=== PATIENT | male | born 1980 | race Caucasian/White ===

== ENCOUNTER → 2018-12-28 15:31 | Outpatient (CLI) | payer BC, SELFPAY ==
--- NOTE | 2018-12-28 16:32 | EKG12_ITS ---
Test Reason : PREOP Blood Pressure : / mmHG Vent. Rate : 067 BPM Atrial Rate : 067 BPM P-R Int : 150 ms QRS Dur : 100 ms QT Int : 382 ms P-R-T Axes : 010 023 040 degrees QTc Int : 403 ms Normal sinus rhythm Normal ECG Confirmed by CHRISTOFER TODD, SONJA ([id number]), associate entertainment editor ANGELLA MCKEON ([id number]) on 12/29/2018 10:19:17 AM Referred By: Hemant Stafford Confirmed By:SONJA BEAULIEU MD
[2018-12-28 17:57] LABS: Hematocrit 44.6 % (40-54); Hemoglobin 15.3 g/dl (13.0-16.5); Mean Corp Hgb Conc 34.3 g/gl (32-36); Mean Corpuscular Hgb 31.1 pg (27.0-32.0); Mean Corpuscular Volume 90.7 fL (80-94); Mean Platelet Vol. 9.2 fl (6.2-12.0); Platelet Count 325 K/mm3 (150-450); RBC Distribution Width CV 13.4 % (11.6-14.6); RBC Distribution Width SD 43.9 fl (35.1-43.9); Red Blood Count 4.92 M/mm3 (4.6-6.2); White Blood Count 8.5 K/mm3 (4.4-11.0)
[2018-12-28 17:58] LABS: Scan Indicated on CBC? Y/N NO
[2018-12-28 18:12] LABS: Anion Gap 7 (5-15); BUN 13 mg/dL (7-18); BUN/Creat Ratio 11.9 RATIO (10-20); Calcium,Total 9.3 mg/dL (8.5-10.1); Chloride 104 mmol/L (98-107); Creatinine, Serum 1.09 mg/dL (0.70-1.30); EST Glomerular Filtration Rate 80 mL/min (>60); Est Glom Filt Rate - Afr Amer 97 mL/min (>60); Glucose 77 mg/dL (74-106); Potassium 3.9 mmol/L (3.5-5.1); Sodium Level 137 mmol/L (136-145)
== END ==
PROVIDERS: Family Provider Family Medicine; PCP Family Medicine; Referring Provider Orthopaedic Surgery; Visit Provider Orthopaedic Surgery
DX: Z01.818 Encounter for other preprocedural examination (principal)
CPT/HCPCS: 36415; 80048; 85027; 93005

== ENCOUNTER → 2018-12-31 11:15 | Outpatient (CLI) | payer BC, SELFPAY ==
[2018-12-31 12:29] LABS: Lithium < 0.20 mmol/L (0.60-1.20)
[2018-12-31 14:00] LABS: Cholesterol 181 mg/dL (200); High Density Lipoprotein 41 mg/dL; Triglycerides 190 mg/dL; Very Low Density Lipoprotein 38 mg/dL (5-40)
== END ==
PROVIDERS: Family Provider Family Medicine; PCP Family Medicine; Referring Provider Orthopaedic Surgery; Visit Provider Orthopaedic Surgery
DX: Z01.818 Encounter for other preprocedural examination (principal); I10 Essential (primary) hypertension; Z01.810 Encounter for preprocedural cardiovascular examination
CPT/HCPCS: 80061; 80178

== ENCOUNTER → 2019-06-13 | Outpatient (CLI) | payer BC, SELFPAY | END | disposition home or self-care (01) | PROVIDERS: Family Provider Family Medicine; PCP Family Medicine | DX: Z79.899 Other long term (current) drug therapy (principal) | CPT/HCPCS: 36415; 80178 ==

== ENCOUNTER → 2019-09-19 07:09 | Outpatient (CLI) | payer BC, SELFPAY ==
[2019-09-19 10:36] LABS: AST(SGOT) 28 U/L (15-37); Alanine Aminotransfer ALT/SGPT 50 U/L (16-61); Albumin, Serum 3.7 g/dL (3.2-5.0); Alkaline Phosphatase 78 U/L (45-117); Anion Gap 8 (5-15); BUN 12 mg/dL (7-18); BUN/Creat Ratio 10.6 RATIO (10-20); Chloride 105 mmol/L (98-107); Cholesterol 182 mg/dL (200); Creatinine, Serum 1.13 mg/dL (0.70-1.30); EST Glomerular Filtration Rate 77 mL/min (>60); Est Glom Filt Rate - Afr Amer 93 mL/min (>60); Globulin 3.6 g/dL (2.2-4.2); Glucose 105 mg/dL (74-106); High Density Lipoprotein 47 mg/dL; Potassium 3.8 mmol/L (3.5-5.1); Protein, Total 7.3 g/dL (6.4-8.2); Sodium Level 140 mmol/L (136-145); Triglycerides 142 mg/dL; Very Low Density Lipoprotein 28 mg/dL (5-40)
== END ==
PROVIDERS: Family Provider Family Medicine; PCP Family Medicine; Referring Provider Family Medicine; Visit Provider Family Medicine
DX: I10 Essential (primary) hypertension (principal); Z13.220 Encounter for screening for lipoid disorders
CPT/HCPCS: 36415; 80053; 80061

== ENCOUNTER → 2020-06-19 07:46 | Outpatient (CLI) | payer BC, SELFPAY ==
[2020-06-19 10:11] LABS: Absolute Lymphocyte Count 1.69 X10^3/uL (0.83-4.51); Absolute Neutrophil Count 4.6 X10^3/uL (2.0-7.7); Basophil# 0.03 X10^3/uL; Basophil% 0.4 % (0-1); Eosinophil# 0.09 X10^3/uL; Eosinophils% 1.3 % (0-5); Hematocrit 46.7 % (40-54); Hemoglobin 15.6 g/dL (13.0-16.5); Lymphocyte # 1.69 X10^3/ul (4.0); Lymphocyte % 23.9 % (19-41); Mean Corp Hgb Conc 33.4 g/dL (32-36); Mean Corpuscular Hgb 30.5 pg (27.0-32.0); Mean Corpuscular Volume 91.4 fL (80-94); Mean Platelet Vol. 8.8 fl (6.2-12.0); Monocyte# 0.61 X10^3/uL; Monocyte% 8.6 % (0-10); NRBC Flagged by Analyzer 0 % (0-5); Neutrophil # 4.64 X10^3/uL (2.7-7.7); Neutrophil % 65.7 % (47-70); Platelet Count 304 K/mm3 (150-450); RBC Distribution Width CV 12.8 % (11.6-14.6); RBC Distribution Width SD 43.2 fl (35.1-43.9); Red Blood Count 5.11 M/mm3 (4.6-6.2); White Blood Count 7.1 K/mm3 (4.4-11.0)
[2020-06-19 11:07] LABS: ALB/GLOB Ratio 1.2 RATIO (0.9-2.4); AST(SGOT) 21 U/L (15-37); Alanine Aminotransfer ALT/SGPT 48 U/L (16-61); Alkaline Phosphatase 63 U/L (45-117); Anion Gap 4 (5-15); BUN 8 mg/dL (7-18); BUN/Creat Ratio 7.4 RATIO (10-20); Calcium,Total 9.2 mg/dL (8.5-10.1); Chloride 108 mmol/L (98-107); Creatinine, Serum 1.08 mg/dL (0.70-1.30); EST Glomerular Filtration Rate 80 mL/min (>60); Est Glom Filt Rate - Afr Amer 97 mL/min (>60); Globulin 3.3 g/dL (2.2-4.2); Glucose 86 mg/dL (74-106); Potassium 4.1 mmol/L (3.5-5.1); Protein, Total 7.3 g/dL (6.4-8.2); Sodium Level 140 mmol/L (136-145); T4 Total, Thyroxin 9.3 ug/dL (4.5-12.1); Thyroid Stim Hormone (TSH) 2.59 uIU/mL (0.358-3.74)
[2020-06-19 11:26] LABS: Hepatitis C Antibody Non-Reactive (Nonreactive); T3 Total - Triiodothyronine 1.33 ng/mL (0.6-1.81)
== END ==
PROVIDERS: PCP Family Medicine; Referring Provider Family Medicine; Visit Provider Family Medicine
DX: R63.4 Abnormal weight loss (principal); R53.83 Other fatigue; Z11.59 Encounter for screening for other viral diseases
CPT/HCPCS: 36415; 80053; 84436; 84443; 84480; 85025; 86803

== ENCOUNTER 2020-07-04 12:22 | Emergency (ER) | payer BC, SELFPAY ==
[2020-07-04] VITALS (9 sets, daily range): BP systolic 126–168; BP diastolic 74–105; PULSE 72–94; RESP 14–18; TEMP 36.5; O2SAT 99; BMI 31.0
--- NOTE | 2020-07-04 12:31 | ED.RN ---
GIRLFRIEND REPORTS ODD BEHAVIOR. REPORTS TAKING THINGS OUT OF FRIDGE AND PUTTING THEM IN CUPBOARDS AND PLACING THINGS IN THE DRIVEWAY. SHE REPORTS SHE FOUND HIM YESTERDAY HUFFING BUTANE FROM HIS CRAPS DEALER. PT DENIES SI/HI OR DEPRESSION.
--- NOTE | 2020-07-04 13:02 | ED.VISSUMM ---
- ER Visit Summary Date of Service: 07/04/20 Chief Complaint: Abnormal behavior History of Present Illness: The patient is a [address] Alcocer. His psychiatrist is Dr. Fox at the [facility]. He has a history of delusional bipolar disorder and has been on lithium for approximately 10 years. He saw his psychiatrist in April and decided in to be on lithium anymore. This is been tapered off and he is finished it in May. Significant other reports he has had gradually increasing behavior since that time. However, they got much worse 5 days ago. She uses him putting a flag in the freezer, emptying the refrigerator onto the shelves, going through doors and moving stuff around, throwing stuff into the driveway as examples of this. Significant other reports he has been sleeping 3 hours a day. Has had a poor p.o. intake. Yesterday she caught him huffing butane from a diesel mechanic apprentice. Patient denies any suicidal or homicidal ideation. Physical Examination: Vitals: Stable. Afebrile. General: Well-nourished and well-developed. Head: Normocephalic atraumatic. Neck: Supple, no lymphadenopathy. No JVD. Nontender. Cardiovascular: Regular rate and rhythm. No murmurs. Respiratory: No respiratory distress. Clear to auscultation bilaterally. Abdominal: Soft, nontender, nondistended, normal bowel sounds. No guarding, rebound, or peritoneal signs. Back: Nontender. Extremities: Nontender, no edema. Skin: Normal color, no rash. Neurologic: Alert and oriented ?3. Cranial nerves II through XII are intact. Normal strength and sensation. Mental status exam: Patient appears their stated age. Good posture and grooming. Good eye contact. Normal rate, volume, and latency of speech. No suicidal or homicidal ideation. No auditory or visual hallucinations. Flow of thought is logical. Insight and judgment is fair. Test Results: CBC is normal. Talk screen is negative. Alcohol is negative. CMP and COVID are pending. Emergency Department Course and Treatment: Patient is resting comfortably without complaint. He was discussed with case management. Patient became increasingly agitated. He was given Geodon IM. Treatment Plan: Patient was discussed with the [facility] by case management. It is felt that he needs to be hospitalized. This is in process at this time. Disposition: Pending Impression: 1. Bipolar disorder with delusions. This note was generated with [employer] dictation software. It may contain incorrect words, spelling, and punctuation that were not noted in review of the chart prior to signing ED Disposition - Plan for ED Patient: Referrals: Danny Alcocer DO [Primary Care Provider] -
[2020-07-04 13:05] LABS: Absolute Lymphocyte Count 2.13 X10^3/uL (0.83-4.51); Absolute Neutrophil Count 5.1 X10^3/uL (2.0-7.7); Basophil# 0.02 X10^3/uL; Basophil% 0.2 % (0-1); Eosinophil# 0.08 X10^3/uL; Hematocrit 44.8 % (40-54); Hemoglobin 14.9 g/dL (13.0-16.5); Lymphocyte # 2.13 X10^3/ul (4.0); Mean Corp Hgb Conc 33.3 g/dL (32-36); Mean Corpuscular Hgb 30.4 pg (27.0-32.0); Mean Corpuscular Volume 91.4 fL (80-94); Mean Platelet Vol. 8.7 fl (6.2-12.0); Monocyte# 0.84 X10^3/uL; Monocyte% 10.3 % (0-10); NRBC Flagged by Analyzer 0 % (0-5); Neutrophil # 5.09 X10^3/uL (2.7-7.7); Neutrophil % 62.1 % (47-70); Platelet Count 309 K/mm3 (150-450); RBC Distribution Width CV 13.1 % (11.6-14.6); RBC Distribution Width SD 43.8 fl (35.1-43.9); White Blood Count 8.2 K/mm3 (4.4-11.0)
--- NOTE | 2020-07-04 13:06 | ED.RN ---
PER DR IGNACIO, PINK SLIP TO BE DETERMINED AFTER EVAL BY SW.
[2020-07-04 13:44] LABS: Alcohol, Blood (Medical)-Serum < 3.0 mg/dL
[2020-07-04 13:51] LABS: Amphetamine Urine VISTA NEGATIVE (<1000 ng/mL); Barbiturate Urine VISTA NEGATIVE (< 200 ng/mL); Benzodiazepine Urine VISTA NEGATIVE (< 200 ng/mL); Cocaine Urine VISTA NEGATIVE (< 300 ng/mL); Ecstacy Urine VISTA NEGATIVE (< 500 ng/mL); Methadone Urine VISTA NEGATIVE (< 300 ng/mL); PCP Urine VISTA NEGATIVE (< 25 ng/mL); THC Urine VISTA NEGATIVE (< 50 ng/mL); Vista UDS pH Range 6
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
--- NOTE | 2020-07-04 14:33 | ED.RN ---
PT INFORMED BY ROBIN DO THAT HE IS PINK SLIPPED AND THAT HE WOULD BE PLACED IN A FACILITY FOR INPATIENT CARE. WHILE UNHAPPY, PT IS AGREEABLE WITH TREATMENT. WATER GIVEN, MEAL ORDERED, MOVED TO ROOM 6 FOR TV. PT QUESTIONS NURSE ABOUT TRANSPORT. PT HAVING TROUBLE REMEMBERING INFORMATION GIVEN. LATER PT GIRLFRIEND SAID HE WAS MAD BECAUSE HE DIDN'T GET A DRINK. INFORMED THAT HE WAS GIVEN A BEVERAGE.
[2020-07-04 15:16] LABS: ALB/GLOB Ratio 1.3 RATIO (0.9-2.4); AST(SGOT) 48 U/L (15-37); Alanine Aminotransfer ALT/SGPT 63 U/L (16-61); Albumin, Serum 4.2 g/dL (3.2-5.0); Alkaline Phosphatase 81 U/L (45-117); Anion Gap 5 (5-15); BUN 3 mg/dL (7-18); BUN/Creat Ratio 2.8 RATIO (10-20); Calcium,Total 9.4 mg/dL (8.5-10.1); Chloride 108 mmol/L (98-107); Creatinine, Serum 1.07 mg/dL (0.70-1.30); EST Glomerular Filtration Rate 81 mL/min (>60); Est Glom Filt Rate - Afr Amer 98 mL/min (>60); Estimated Creatinine Clearance 94.76 ml/min; Globulin 3.2 g/dL (2.2-4.2); Glucose 98 mg/dL (74-106); Protein, Total 7.4 g/dL (6.4-8.2); Sodium Level 142 mmol/L (136-145)
[2020-07-04] MEDS: Ziprasidone IM 20 MG/ML VIAL IM (16:08)
--- NOTE | 2020-07-04 16:10 | ED.RN ---
PT VOICES FEELING VERY ANXIOUS WAITING FOR PLACEMENT. OFFERED GEODON AND NICOTINE GUM, PT WILLINGLY ACCEPTS. PT IS PLEASANT AND COOPERATIVE WITH STAFF AT THIS TIME.
[2020-07-04 16:28] LABS: Probe Check PASS; Specimen Processing Control PASS
--- NOTE | 2020-07-04 16:31 | CM.ED ---
SOCIAL WORK COVID-19 results received. Referral faxed to [facility]. Yassine Ervin, FLASH WELDING MACHINE OPERATOR, PIT HOIST OPERATOR
--- NOTE | 2020-07-04 16:48 | CM.ED ---
SOCIAL WORK Call to Tate with [facility] to verify referral received. Per Tate, spoke with Peyton in intake and referral has been received and will be reviewed. Tate reports does have beds available. Yassine Ervin MSW, STRUCTURAL RIGGER
--- NOTE | 2020-07-04 18:25 | CM.ED ---
SOCIAL WORK Call to Peyton with [facility] to inquire about referral. Per Peyton, will be getting back to this worker soon. Still awaiting acceptance at this time. Yassine Ervin, DATA DELIVERABLES MANAGER, PACK WORKER
--- NOTE | 2020-07-04 19:25 | CM.ED ---
SOCIAL WORK Call to Tate with [facility] to inquire about referral process and length of time for referral to be reviewed. Tate states review process should not take this long. Ttae to follow up with [facility] can worker and get back to this worker. Yassine Ervin, HOOKMAN, PUMP SERVICE SUPERVISOR
--- NOTE | 2020-07-04 19:55 | CM.ED ---
SOCIAL WORK Received call from Peyton with [facility] who reports still needing to review case with physician and if accepted would not be able to accommodate patient until tomorrow. This worker informed will seek other placement. Referral called and faxed to René at [facility]. René to review referral and get back to this worker. Yassine Ervin, SLEEVE BASTER, INSURANCE COUNSELOR
--- NOTE | 2020-07-04 20:37 | CM.ED ---
SOCIAL WORK Call from [place] with [facility]. Patient accepted by Dr. Delgadillo to the [facility]. Nurse to call report to . [employer] to set up transport. Patient sleeping at this time. Patient's girlfriend updated on transfer to [facility]. All questions answered. Yassine Ervin, RESEARCH ASSOCIATE POLICY, JR. SYSTEMS ADMINISTRATOR
== END 2020-07-04 22:49 ==
PROVIDERS: Emergency Provider Emergency Medicine; PCP Family Medicine
DX: F31.9 Bipolar disorder, unspecified (principal); F22 Delusional disorders; I10 Essential (primary) hypertension; Z79.899 Other long term (current) drug therapy; F17.200 Nicotine dependence, unspecified, uncomplicated
CPT/HCPCS: 80053; 80307; 80320; 85025; 87635; 96372; 99283; C9803; G0480; J3486; U0003

== ENCOUNTER → 2020-08-03 07:18 | Outpatient (CLI) | payer BC, SELFPAY ==
[2020-07-04 12:24] VITALS: BMI 31.0
[2020-08-03 10:22] LABS: Hematocrit 45.9 % (40-54); Hemoglobin 14.8 g/dL (13.0-16.5); Mean Corp Hgb Conc 32.2 g/dL (32-36); Mean Corpuscular Hgb 30.3 pg (27.0-32.0); Mean Corpuscular Volume 93.9 fL (80-94); Platelet Count 362 K/mm3 (150-450); RBC Distribution Width CV 13.4 % (11.6-14.6); RBC Distribution Width SD 46.5 fl (35.1-43.9); Red Blood Count 4.89 M/mm3 (4.6-6.2); White Blood Count 9.6 K/mm3 (4.4-11.0)
[2020-08-03 10:39] LABS: BUN 10 mg/dL (7-18); EST Glomerular Filtration Rate 79 mL/min (>60); Glucose 111 mg/dL (74-106)
[2020-08-03 10:40] LABS: ALB/GLOB Ratio 1.1 RATIO (0.9-2.4); AST(SGOT) 17 U/L (15-37); Alanine Aminotransfer ALT/SGPT 28 U/L (16-61); Albumin, Serum 3.5 g/dL (3.2-5.0); Alkaline Phosphatase 62 U/L (45-117); Anion Gap 4 (5-15); BUN/Creat Ratio 9.1 RATIO (10-20); Calcium,Total 8.9 mg/dL (8.5-10.1); Chloride 110 mmol/L (98-107); Cholesterol 154 mg/dL (200); Est Glom Filt Rate - Afr Amer 95 mL/min (>60); Globulin 3.3 g/dL (2.2-4.2); High Density Lipoprotein 40 mg/dL; Potassium 3.7 mmol/L (3.5-5.1); Protein, Total 6.8 g/dL (6.4-8.2); Sodium Level 140 mmol/L (136-145); Thyroid Stim Hormone (TSH) 3.41 uIU/mL (0.358-3.74); Triglycerides 150 mg/dL; Very Low Density Lipoprotein 30 mg/dL (5-40)
[2020-08-03 10:47] LABS: Hemoglobin A1c 5.4 % (3.8-5.6)
== END ==
PROVIDERS: PCP Family Medicine
DX: Z79.899 Other long term (current) drug therapy (principal)
CPT/HCPCS: 36415; 80053; 80061; 80178; 83036; 84443; 85027

== ENCOUNTER → 2021-05-23 07:47 | Outpatient (CLI) | payer BC, SELFPAY ==
[2020-07-04 12:24] VITALS: BMI 31.0
[2021-05-23 08:45] LABS: Hematocrit 49.7 % (40-54); Hemoglobin 16.5 g/dL (13.0-16.5); Mean Corp Hgb Conc 33.2 g/dL (32-36); Mean Corpuscular Hgb 30.5 pg (27.0-32.0); Mean Corpuscular Volume 91.9 fL (80-94); Mean Platelet Vol. 8.7 fl (6.2-12.0); Platelet Count 325 K/mm3 (150-450); RBC Distribution Width SD 47.4 fl (35.1-43.9); Red Blood Count 5.41 M/mm3 (4.6-6.2); White Blood Count 9.5 K/mm3 (4.4-11.0)
[2021-05-23 09:12] LABS: ALB/GLOB Ratio 1.2 RATIO (0.9-2.4); AST(SGOT) 32 U/L (15-37); Alanine Aminotransfer ALT/SGPT 47 U/L (16-61); Albumin, Serum 3.9 g/dL (3.2-5.0); Alkaline Phosphatase 67 U/L (45-117); Anion Gap 7 (5-15); BUN 8 mg/dL (7-18); BUN/Creat Ratio 7.2 RATIO (10-20); Calcium,Total 8.7 mg/dL (8.5-10.1); Chloride 103 mmol/L (98-107); Cholesterol 156 mg/dL (200); Creatinine, Serum 1.11 mg/dL (0.70-1.30); EST Glomerular Filtration Rate 78 mL/min (>60); Est Glom Filt Rate - Afr Amer 94 mL/min (>60); Globulin 3.3 g/dL (2.2-4.2); Glucose 132 mg/dL (74-106); High Density Lipoprotein 36 mg/dL; Potassium 4.2 mmol/L (3.5-5.1); Protein, Total 7.2 g/dL (6.4-8.2); Sodium Level 137 mmol/L (136-145); Triglycerides 162 mg/dL; Very Low Density Lipoprotein 32 mg/dL (5-40)
[2021-05-23 09:48] LABS: Hemoglobin A1c 5.3 % (3.8-5.6)
[2021-05-23 21:35] LABS: Vitamin D,25 Hydroxy 23.7 ng/mL
== END ==
PROVIDERS: PCP Family Medicine
DX: E55.9 Vitamin D deficiency, unspecified (principal); E78.2 Mixed hyperlipidemia; Z79.899 Other long term (current) drug therapy
CPT/HCPCS: 36415; 80053; 80061; 80178; 82306; 83036; 85027

== ENCOUNTER 2021-06-01 13:51 | Emergency (ER) | payer BC, SELFPAY ==
[2020-07-04 12:24] VITALS: BMI 31.0
[2021-06-01 13:52] VITALS: BP 154/99; PULSE 99; RESP 16; TEMP 36.9; O2SAT 97; BMI 30.1
[2021-06-01 15:17] LABS: Absolute Neutrophil Count 8.1 X10^3/uL (2.0-7.7); Basophil# 0.04 X10^3/uL; Basophil% 0.4 % (0-1); Eosinophil# 0.06 X10^3/uL; Eosinophils% 0.5 % (0-5); Hematocrit 46.3 % (40-54); Hemoglobin 15.4 g/dL (13.0-16.5); Lymphocyte % 16.4 % (19-41); Mean Corp Hgb Conc 33.3 g/dL (32-36); Mean Corpuscular Hgb 30.8 pg (27.0-32.0); Mean Corpuscular Volume 92.6 fL (80-94); Mean Platelet Vol. 8.5 fl (6.2-12.0); Monocyte% 8.2 % (0-10); NRBC Flagged by Analyzer 0 % (0-5); Neutrophil # 8.11 X10^3/uL (2.7-7.7); Neutrophil % 74.1 % (47-70); Platelet Count 352 K/mm3 (150-450); RBC Distribution Width CV 14.1 % (11.6-14.6); RBC Distribution Width SD 48.1 fl (35.1-43.9)
[2021-06-01 15:33] LABS: Anion Gap 6 (5-15); BUN 6 mg/dL (7-18); BUN/Creat Ratio 6.5 RATIO (10-20); Calcium,Total 9.2 mg/dL (8.5-10.1); Chloride 105 mmol/L (98-107); Creatinine, Serum 0.92 mg/dL (0.70-1.30); EST Glomerular Filtration Rate 97 mL/min (>60); Est Glom Filt Rate - Afr Amer 117 mL/min (>60); Glucose 90 mg/dL (74-106); Potassium 3.5 mmol/L (3.5-5.1); Sodium Level 138 mmol/L (136-145)
[2021-06-01 15:44] LABS: Alcohol, Blood (Medical)-Serum < 3.0 mg/dL
--- NOTE | 2021-06-01 16:00 | EX.ED.VIS.PS ---
HPI HPI - Psych History of Present Illness Chief Complaint: Mental Health Informant: patient and family Onset/Context/Timing Onset: Days Context: Gradual Onset Narrative Narrative: Patient presents for mental health evaluation. Patient states his mom wanted to come in and get checked. She is present at bedside. She states he has not been acting right for the last 3 days. She is concerned that he is off his psych meds. She states that he had a break-up 2 months ago and has been drinking more. Patient does admit to drinking heavily last night. He also admits to using some marijuana. Patient states he is taking his medications including his lithium. He denies suicidal or homicidal ideation. He does currently live alone. [facility] Medical History Bipolar disorder Hypertension Home Medications amlodipine 5 mg PO DAILY 07/04/20 [History Last Taken Unknown] lithium carbonate 300 mg PO BID 06/01/21 [History Last Taken Unknown] Allergy/AdvReac Type Severity Reaction Status Date / Time niacin AdvReac Hives Verified 06/01/21 13:55 Surgical History History of appendectomy Social History Smoking Status: Current every day smoker tobacco type: cigarettes and smokeless tobacco ROS ROS ED Constitutional Constitutional ED: Denies chills or fever(s) Eyes Eyes: Denies change in vision ENT ENT ED: Denies sore throat Cardiovascular Cardiovascular: Denies chest pain Respiratory/Chest Respiratory/Chest: Denies cough or dyspnea Gastrointestinal Gastrointestinal: Denies abdominal pain, diarrhea, nausea or vomiting Genitourinary Genitourinary ED: Denies dysuria Musculoskeletal Musculoskeletal: Denies back pain Integumentary Denies rash Neurologic Neurologic: Denies headache(s) or weakness Psychiatric Psychiatric: Reports depression; Denies anxiety, suicidal ideation or suicidal thoughts EXAM Physical Exam Const Vital Signs: 06/01/21 13:52 Temperature 98.5 F Temperature Source Temporal Pulse Rate 99 Respiratory Rate 16 Blood Pressure 154/99 H Blood Pressure Mean 117 Pulse Ox 97 Oxygen Delivery Method Room Air Positive well nourished and well developed General Appearance ED: well developed HEENT Reports normocephalic and head/scalp atraumatic Eyes PERRL and EOMs intact bilaterally Neck supple Chest Wall inspection of chest normal and palpation of chest normal Resp normal respiratory effort and clear to auscultation bilaterally Cardio regular rate and regular rhythm GI normal to inspection, nondistended, normoactive bowel sounds Palpation: soft Extremity normal to inspection Neuro oriented x3 and no sensory deficits noted Sensorium / Orientation: alert Motor Exam: strength 5/5 throughout Psych mental status grossly normal, denies homicidal ideation and denies suicidal ideation Mood & Affect: flat affect Skin no rashes or lesions noted MDM MDM MDM Narrative Medical decision making narrative: Blood work and urine tox screen obtained. Lab Data Attestation: I reviewed the patient's lab results. Labs: Laboratory Results - last 24 hr 06/01/21 06/01/21 06/01/21 15:00 15:00 15:00 WBC 11.0 RBC 5.00 Hgb 15.4 Hct 46.3 MCV 92.6 MCH 30.8 MCHC 33.3 RDW Std Deviation 48.1 H RDW Coeff of Mayra 14.1 Plt Count 352 MPV 8.5 Immature Gran % (Auto) 0.400 Neut % (Auto) 74.1 H Lymph % (Auto) 16.4 L [place] % (Auto) 8.2 Eos % (Auto) 0.5 Baso % (Auto) 0.4 Absolute Neuts (auto) 8.1 H Absolute Lymphs (auto) 1.80 Nucleated RBC % 0 Sodium 138 Potassium 3.5 Chloride 105 Carbon Dioxide 27.0 Anion Gap 6 BUN 6 L Creatinine 0.92 Estim Creat Clear Calc 109.10 Est GFR (MDRD) Af Amer 117 Est GFR (MDRD) Non-Af 97 BUN/Creatinine Ratio 6.5 L Glucose 90 Calcium 9.2 [place] 0.40 L Ethyl Alcohol < 3.0 Treatment and Re-Evaluation Comments:: Patient's urine tox read is pending at this time. Patient has had difficulty following directions to obtain a urine sample. He is pacing in the room and appears to be responding to internal stimuli. He has inappropriate laughter. Patient was seen by Allison from social work. She feels that he is responding to internal stimuli as well and would benefit from placement. Patient will be signed out to oncoming physician pending placement. [place] slip and transfer sheet have already been signed. Patient is becoming increasingly agitated. I do have a dose of Geodon ordered for nursing. Discharge Plan Triage Chief Complaint: Mental Health ED Provider: Peyton Ballard Dx/Rx/DC Orders Clinical Impression: Psychosis Prescriptions: No Action amlodipine 5 MG tablet 5 mg PO DAILY RF: 0 lithium carbonate 300 mg capsule 300 mg PO BID RF: 0 Primary Care Provider: Danny Alcocer Referrals: Danny Alcocer DO [Primary Care Provider] -
[2021-06-01 16:52] VITALS: RESP 17
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
[2021-06-01 17:02] LABS: Amphetamine Urine VISTA NEGATIVE (<1000 ng/mL); Barbiturate Urine VISTA NEGATIVE (< 200 ng/mL); Benzodiazepine Urine VISTA NEGATIVE (< 200 ng/mL); Cocaine Urine VISTA NEGATIVE (< 300 ng/mL); Ecstacy Urine VISTA NEGATIVE (< 500 ng/mL); Methadone Urine VISTA NEGATIVE (< 300 ng/mL); PCP Urine VISTA NEGATIVE (< 25 ng/mL); THC Urine VISTA NEGATIVE (< 50 ng/mL); Vista UDS pH Range 6
--- NOTE | 2021-06-01 17:42 | CM.ED ---
ROBIN Jaeger RN advised that mother of robert said that patient gets like this when he uses pot while on his Meds and stated patient gets into a manic state. RN said that patient's kicked him out and left him one month ago but he had told this property underwriter it was a couple of months ago. RN said that she had cathed patient for his tox screen. RN said patient had raised his voice, kicked the stool across the room and is mad as he wants to leave Plan: inpatient psych hospitalization Allison INGRAM
[2021-06-01 18:00] VITALS: RESP 17
[2021-06-01 19:21] VITALS: RESP 15
[2021-06-01 19:37] LABS: AST(SGOT) 45 U/L (15-37); Alanine Aminotransfer ALT/SGPT 41 U/L (16-61); Alkaline Phosphatase 73 U/L (45-117); Bilirubin, Direct 0.17 mg/dL (0.00-0.30); Globulin 3.6 g/dL (2.2-4.2); Protein, Total 7.6 g/dL (6.4-8.2)
[2021-06-01] MEDS: Ziprasidone IM 20 MG/ML VIAL IM (19:50)
[2021-06-01 20:23] VITALS: BP 133/68; PULSE 93; RESP 14; O2SAT 95
--- NOTE | 2021-06-01 20:37 | ED.RN ---
1950 PT WAS OBSERVED BY MULTIPLE STAFF MEMBERS COMPLETELY NAKED ATTEMPTING TO TAKE A BATH IN THE ROOM SINK. PT WAS APPROACHED BY THIS RN AND OBSERVED TALKING TO HIMSELF. HE WAS HANDED A TOWEL AND ASKED TO PLACE HIS GOWN BACK ON TO WHICH HE THREW THE TOWEL ON THE BED AND DID NOT PUT HIS GOWN BACK ON. HE BEGAN PACING AROUND THE ROOM STILL NAKED, STANDING IN CORNERS, TALKING TO HIMSELF AND INTERMITTENTLY, INAPPROPRIATELY LAUGHING. PT HAD AN ORDER FOR GEODON THAT WAS ADMINISTERED AT THIS TIME DUE TO HIS ESCALATING BEHAVIOR THAT WAS UNABLE TO BE REDIRECTED. PT SAT IN BED WAS COMPLIANT WITH GETTING THE SHOT IN HIS LEG.
--- NOTE | 2021-06-01 20:50 | CM.ED ---
ROBIN note: [facility] called. They said that patient is tentatively accepted, SW received call from [facility]. He said that accepting MD is Dr. Clinton. RN to RN is [phone]. He will be on [address] [place] [address]. He said that to include information regarding patient taking a bath in the sink in the room on the Application for Emergency Mental Health ([place]) SW updated MD and included information on the pink slip regarding patient bathing in the sink in the room. Plan: [facility] Allison INGRAM
--- NOTE | 2021-06-01 21:01 | CM.ED ---
Addendum entered by Allison Huston 06/01/21 21:05: ROBIN called [facility] and stated that patient was going to another placement for treatment. Allison INGRAM Original Note: ROBIN note: [facility] called. They said that patient is tentatively accepted, however not till after 7am on Thursday morning. ROBIN called [facility] and made referral regarding patient. ROBIN received call from [place]. ROBIN advised that approximately 45 minutes ago at 7:50pm patient was given Geodon due to bathing in the room. ROBIN received call from [place]. He said that accepting MD is Dr. Clinton. RN to RN is [phone]. He will be on [address] [place] [address]. He said that to include information regarding patient taking a bath in the sink in the room on the Application for Emergency Mental Health ([place]) ROBIN updated MD and included information on the pink slip regarding patient bathing in the sink in the room. ROBIN included this on pink slip and faxed it to [facility] for their documentation. Plan: [facility] Allison INGRAM
--- NOTE | 2021-06-01 21:06 | CM.ED ---
Addendum entered by Allison Huston 06/01/21 21:18: ROBIN called patient's mother and updated her that ambulance was here. She indicated she was in patient's room. Allison INGRAM Original Note: ROBIN Note: ROBIN updated patient's mother that patient was accepted at [facility]. Allison INGRAM
[2021-06-01 21:31] VITALS: BP 137/84; PULSE 79; RESP 15; O2SAT 98
== END 2021-06-01 21:33 ==
PROVIDERS: Emergency Medicine; Emergency Provider Emergency Medicine; PCP Family Medicine
DX: F29 Unspecified psychosis not due to a substance or known physiological condition (principal); F31.9 Bipolar disorder, unspecified; I10 Essential (primary) hypertension; F12.90 Cannabis use, unspecified, uncomplicated; Z79.899 Other long term (current) drug therapy; F17.210 Nicotine dependence, cigarettes, uncomplicated
CPT/HCPCS: 36415; 80048; 80076; 80178; 80307; 82077; 85025; 87426; 96372; 99285; J3486

== ENCOUNTER → 2022-03-12 | Outpatient (CLI) | payer BC, SELFPAY ==
[2022-03-12 10:12] LABS: Hematocrit 47.5 % (40-54); Hemoglobin 15.8 g/dL (13.0-16.5); Mean Corp Hgb Conc 33.3 g/dL (32-36); Mean Corpuscular Hgb 30.8 pg (27.0-32.0); Mean Corpuscular Volume 92.6 fL (80-94); Mean Platelet Vol. 8.6 fl (6.2-12.0); Platelet Count 329 K/mm3 (150-450); RBC Distribution Width CV 13.2 % (11.6-14.6); RBC Distribution Width SD 45.3 fl (35.1-43.9); Red Blood Count 5.13 M/mm3 (4.6-6.2); White Blood Count 7.2 K/mm3 (4.4-11.0)
[2022-03-12 10:31] LABS: Hemoglobin A1c 5.2 % (3.8-5.6)
[2022-03-12 10:36] LABS: Cholesterol 153 mg/dL (200); High Density Lipoprotein 44 mg/dL; Thyroid Stim Hormone (TSH) 3.72 uIU/mL (0.358-3.74); Triglycerides 131 mg/dL; Very Low Density Lipoprotein 26 mg/dL (5-40)
[2022-03-12 10:43] LABS: Lithium < 0.20 mmol/L (0.60-1.20)
[2022-03-12 11:04] LABS: HIV - WCH Non-Reactive (Nonreactive); Hepatitis C Antibody Non-Reactive (Nonreactive); Vitamin D,25 Hydroxy 26.4 ng/mL
[2022-03-13 10:35] LABS: HSV 1 IgG < 0.91 index (0.00-0.90); HSV 2 IgG < 0.91 index (0.00-0.90)
== END | disposition home or self-care (01) ==
LOC: MTLAB 07:00
PROVIDERS: PCP Family Medicine; Referring Provider Counselor Mental Health; Visit Provider Counselor Mental Health
DX: E55.9 Vitamin D deficiency, unspecified (principal); Z79.899 Other long term (current) drug therapy; E78.2 Mixed hyperlipidemia
CPT/HCPCS: 36415; 80061; 80178; 82306; 83036; 84443; 85027; 86695; 86696; 86703; 86803

== ENCOUNTER → 2023-06-22 | Outpatient (CLI) | payer OTHER, SELFPAY ==
[2023-06-22 10:10] LABS: Hematocrit 49.4 % (40-54); Mean Corp Hgb Conc 32.4 g/dL (32-36); Mean Corpuscular Hgb 30.5 pg (27.0-32.0); Mean Corpuscular Volume 94.1 fL (80-94); Mean Platelet Vol. 8.3 fl (6.2-12.0); Platelet Count 330 K/mm3 (150-450); RBC Distribution Width CV 12.5 % (11.6-14.6); RBC Distribution Width SD 43.5 fl (35.1-43.9); Red Blood Count 5.25 M/mm3 (4.6-6.2); White Blood Count 5.6 K/mm3 (4.4-11.0)
[2023-06-22 10:41] LABS: Hemoglobin A1c 5.2 % (3.8-5.6)
[2023-06-22 10:42] LABS: Vitamin B12 366 pg/mL (211-911); Vitamin D,25 Hydroxy 31.7 ng/mL
[2023-06-22 10:57] LABS: ALB/GLOB Ratio 1.1 RATIO (0.9-2.4); AST(SGOT) 23 U/L (15-37); Alanine Aminotransfer ALT/SGPT 26 U/L (16-61); Albumin, Serum 3.9 g/dL (3.2-5.0); Alkaline Phosphatase 54 U/L (45-117); Anion Gap 3 (5-15); BUN 11 mg/dL (7-18); BUN/Creat Ratio 9.8 RATIO (10-20); Calcium,Total 9.1 mg/dL (8.5-10.1); Chloride 109 mmol/L (98-107); Cholesterol 165 mg/dL (200); Creatinine, Serum 1.12 mg/dL (0.70-1.30); EST Glomerular Filtration Rate 76 mL/min (>60); Est Glom Filt Rate - Afr Amer 92 mL/min (>60); Globulin 3.6 g/dL (2.2-4.2); Glucose 78 mg/dL (74-106); High Density Lipoprotein 50 mg/dL; Potassium 4.2 mmol/L (3.5-5.1); Protein, Total 7.5 g/dL (6.4-8.2); Sodium Level 139 mmol/L (136-145); Thyroid Stim Hormone (TSH) 1.95 uIU/mL (0.358-3.74); Triglycerides 261 mg/dL; Very Low Density Lipoprotein 52 mg/dL (5-40)
[2023-06-22 11:32] LABS: Lithium < 0.20 mmol/L (0.60-1.20)
== END | disposition home or self-care (01) ==
PROVIDERS: PCP Family Medicine; Referring Provider Counselor Mental Health; Visit Provider Counselor Mental Health
DX: E55.9 Vitamin D deficiency, unspecified (principal); E78.2 Mixed hyperlipidemia; Z79.899 Other long term (current) drug therapy
CPT/HCPCS: 36415; 80053; 80061; 80178; 82306; 82607; 82746; 83036; 84443; 85027